=== PATIENT | male | born 1960 | race Caucasian/White ===

== ENCOUNTER 2016-11-29 16:37 | Emergency (ER) | payer OTHER ==
[~2016-11-29] VITALS: Ht 191.8 cm; Wt 106.6 kg
== END 2016-11-29 17:27 | disposition home or self-care (01) ==
LOC: CFTX 16:37 → CED 16:37 → CFTX 17:11
DX: J06.9 Acute upper respiratory infection, unspecified (principal); M19.90 Unspecified osteoarthritis, unspecified site; F41.9 Anxiety disorder, unspecified; F17.210 Nicotine dependence, cigarettes, uncomplicated
CPT/HCPCS: 99283